=== PATIENT | female | born 1970 | race Caucasian/White ===

== ENCOUNTER → 2018-06-10 11:33 | Outpatient (CLI) | payer OTHER, SELFPAY ==
--- NOTE | 2018-06-10 11:54 | XR_ITS ---
XR chest 2V HISTORY: Cough 1 week. Fever ITS.REASON: BRONCHITIS ORDERING PHYSICIAN: Nakita Golden PATIENT AGE: 47 years Technique: PA and lateral chest. COMPARISON: No prior chest films but there is a flat and upright abdomen which includes lung bases from August 2009 FINDINGS: No discrete focal pneumonia evident. Slight accentuation markings right> left infrahilar region noted but I believe this is likely stable since previous abdominal series 2009. Suspect mild chronic changes with nothing definitely acute. The cardiomediastinal silhouette and pulmonary vascularity are within normal limits. . No suspicious nodules, or pleural effusions. No acute bony abnormalities. Minimal Calcified hilar nodes reflect over elements disease ----- IMPRESSION:------ Nothing definitely acute. Favor Mild chronic changes account for slight accentuation markings infrahilar regions bilaterally with nothing definitely acute
== END ==
PROVIDERS: PCP Family Medicine; Visit Provider Nurse Practitioner Family
DX: J40 Bronchitis, not specified as acute or chronic (principal)
CPT/HCPCS: 71046